=== PATIENT | male | born 1930 | race Hispanic/Latino ===

== ENCOUNTER 2017-04-26 07:50 | Emergency (ER) | payer MEDICARE, OTHER ==
--- NOTE | 2017-04-26 12:05 | Emergency Department Report ---
ED Fall HPI - General Chief Complaint: Fall Stated Complaint: FALL Time Seen by Provider: 04/26/17 11:26 Source: patient Mode of arrival: Ambulatory - History of Present Illness Initial Comments: 86-year-old male past medical history CAD, CVA, hypertension, stents, SC 2013 presents with complaint of facial pain, nasal pain, left elbow pain status post mechanical fall at home. Patient states that this morning he was walking downstairs and tripped on the last stair staircase about one to 2 steps fell forward and hit his left elbow and front face on the side of wall. Patient denies any loss of consciousness. Denies any nausea or vomiting., Visible abrasion to forehead and bridge of nose. Patient states that he feels significant pain when trying to flex or extend his left elbow. Patient is accompanied by his daughter. Denies any loss of consciousness is fully lucid awake alert and oriented and ambulatory without assistance. Patient states he bled from his nose briefly. States last tetanus update was in 2012 -: This morning Fall From: down stairs (#) (1-2) When Fall Occurred: 4-6 hours [employer] Fall Witnessed: no Place Fall Occurred: home Loss of Consciousness: none Prolonged Down Time?: no Symptoms Prior to Fall: none Location: head, other (left arm) Location - Extremities: Left: Elbow (left elbow pain and swelling) Severity: moderate Severity scale (0 -10): 6 Quality: aching Context: tripped/slipped Associated Symptoms: denies - Related Data Home Medications Medication Instructions Recorded Confirmed Last Taken Albuterol Sulfate [Ventolin HFA] 2 puff PO BID PRN 06/22/13 06/22/13 07/15/13 21 :00 Amiodarone HCl 200 mg PO DAILY 06/22/13 06/22/13 07/15/13 21:00 Aspirin [Aspirin EC] 1 tab PO DAILY 06/22/13 06/22/13 07/15/13 21:00 Clopidogrel Bisulfate [Clopidogrel] 75 mg PO DAILY 06/22/13 06/22/13 07/15/13 21 :00 Lisinopril 2.5 mg PO DAILY 06/22/13 06/22/13 07/15/13 21:00 Cefuroxime [Ceftin] 250 mg PO Q12H 07/03/13 07/03/13 07/15/13 21:00 Venlafaxine [Effexor 37.5mg tab] 37.5 mg PO QDAY 07/03/13 07/03/13 07/15/13 21: 00 Atorvastatin (Nf) [Lipitor] 10 mg PO QHS 07/08/13 07/08/13 07/15/13 21:00 Nitroglycerin [Nitrostat] 0.4 mg SL PRN PRN 07/08/13 07/08/13 07/08/13 Pantoprazole [Protonix TAB] 40 mg PO BID 07/08/13 07/08/13 07/15/13 21:00 Amiodarone [Cordarone] 200 mg PO DAILY 07/16/13 07/16/13 07/15/13 21:00 Atorvastatin (Nf) [Lipitor] 20 mg PO QHS 07/16/13 07/16/13 07/15/13 21:00 Previous Rx's Medication Instructions Recorded Last Taken Type HYDROcodone/APAP 5-325 [[place] 1 each PO Q6HR PRN #20 tablet 04/26/17 Unknown Rx 5/325] Allergies Allergy/AdvReac Type Severity Reaction Status Date / Time No Known Allergies Allergy Unverified 06/22/13 14:50 ED Review of Systems ROS: Stated complaint: FALL Other details as noted in HPI Constitutional: denies: chills, fever Eyes: denies: eye pain, eye discharge, vision change ENT: denies: ear pain, throat pain Respiratory: denies: cough, shortness of breath, wheezing Cardiovascular: denies: chest pain, palpitations Endocrine: no symptoms reported Gastrointestinal: denies: abdominal pain, nausea, diarrhea Genitourinary: denies: urgency, dysuria Musculoskeletal: denies: back pain, joint swelling, arthralgia Skin: denies: rash, lesions Neurological: denies: headache, weakness, paresthesias Psychiatric: denies: anxiety, depression Hematological/Lymphatic: denies: easy bleeding, easy bruising ED Past Medical Hx - Past Medical History Previous Medical History?: Yes Hx Hypertension: No Hx CVA: Yes Hx Heart Attack/AMI: Yes Hx Renal Disease: Yes Additional medical history: bladder stopage - Surgical History Past Surgical History?: Yes Hx Coronary Stent: Yes (ANGIOPLASTY 02/2013) Additional Surgical History: Kidney stone removed - Social History Smoking Status: Never Smoker Substance Use Type: Prescribed - Medications Home Medications: Home Medications Medication Instructions Recorded Confirmed Last Taken Type Albuterol Sulfate [Ventolin HFA] 2 puff PO BID PRN 06/22/13 06/22/13 07/15/13 21 :00 History Amiodarone HCl 200 mg PO DAILY 06/22/13 06/22/13 07/15/13 21:00 History Aspirin [Aspirin EC] 1 tab PO DAILY 06/22/13 06/22/13 07/15/13 21:00 History Clopidogrel Bisulfate [Clopidogrel] 75 mg PO DAILY 06/22/13 06/22/13 07/15/13 21 :00 History Lisinopril 2.5 mg PO DAILY 06/22/13 06/22/13 07/15/13 21:00 History Cefuroxime [Ceftin] 250 mg PO Q12H 07/03/13 07/03/13 07/15/13 21:00 History Venlafaxine [Effexor 37.5mg tab] 37.5 mg PO QDAY 07/03/13 07/03/13 07/15/13 21: 00 History Atorvastatin (Nf) [Lipitor] 10 mg PO QHS 07/08/13 07/08/13 07/15/13 21:00 History Nitroglycerin [Nitrostat] 0.4 mg SL PRN PRN 07/08/13 07/08/13 07/08/13 History Pantoprazole [Protonix TAB] 40 mg PO BID 07/08/13 07/08/13 07/15/13 21:00 History Amiodarone [Cordarone] 200 mg PO DAILY 07/16/13 07/16/13 07/15/13 21:00 History Atorvastatin (Nf) [Lipitor] 20 mg PO QHS 07/16/13 07/16/13 07/15/13 21:00 History HYDROcodone/APAP 5-325 [[place] 1 each PO Q6HR PRN #20 tablet 04/26/17 Unknown Rx 5/325] ED Physical Exam - General Limitations: No Limitations General appearance: alert, in no apparent distress - Head Head exam: Present: other (swelling to bridge of nose and abrasions on forehead and bridge of nose) - Eye Eye exam: Present: normal appearance, PERRL, EOMI - ENT ENT exam: Present: mucous membranes moist - Expanded ENT Exam Expanded Throat exam: Positive: normal inspection - Neck Neck exam: Present: normal inspection, full ROM - Respiratory Respiratory exam: Present: normal lung sounds bilaterally. Absent: respiratory distress - Cardiovascular Cardiovascular Exam: Present: regular rate, normal rhythm. Absent: systolic murmur, diastolic murmur, rubs, gallop - GI/Abdominal GI/Abdominal exam: Present: soft, normal bowel sounds - Rectal Rectal exam: Present: deferred - Extremities Exam Extremities exam: Present: normal inspection, tenderness (tenderness left elbow) - Expanded Upper Extremity Exam Left Shoulder Exam: Present: normal inspection, full ROM Upper Arm exam: Present: normal inspection, full ROM Elbow exam: Present: tenderness (tenderness and swelling at lateral left elbow flexion and extension difficult for patient), swelling (swelling lateral elbow) , abrasion (abrasion left elbow), pain w/ pronation/supination Forearm Wrist exam: Present: tenderness, swelling (swelling at left elbow) Hand Wrist exam: Present: normal inspection, full ROM Neuro motor exam: Present: wrist extension intact, thumb opposition intact, thumb IP flexion intact, thumb adduction intact, fingers 2-5 abduction intact Vascular: Present: normal capillary refill (slow capillary refill less than one second all fingers), radial pulse, brachial pulse (distal radial and brachial pulses intact to palpation) - Back Exam Back exam: Present: normal inspection - Neurological Exam Neurological exam: Present: alert, oriented X3, CN II-XII intact - Psychiatric Psychiatric exam: Present: normal affect, normal mood - Skin Skin exam: Present: warm, dry, intact, normal color. Absent: rash ED Course Vital Signs 04/26/17 04/26/17 04/26/17 08:12 13:49 15:51 Temperature 97.5 F L 97.9 F Pulse Rate 62 70 Respiratory 18 20 20 Rate Blood Pressure 122/74 Blood Pressure 110/72 [Right] O2 Sat by Pulse 98 98 Oximetry 04/26/17 16:29 Temperature Pulse Rate Respiratory 20 Rate Blood Pressure Blood Pressure [Right] O2 Sat by Pulse Oximetry ED Medical Decision Making - Lab Data Result diagrams: 04/26/17 15:52 04/26/17 15:52 - Medical Decision Making A/P: Left distal humerus fracture, nasal bone fracture, mechanical fall, cervical spine fracture 1-is custom with Dr. Reed, patient to be transferred to trauma Center for neurosurgical/trauma eval given history of cervical fracture. As per patient and the family he sustained a cervical fracture status post fall in 2013 and was aware that he had a broken cervical vertebra. As per CT report this appears old however and context of new fall patient should be evaluated by neurosurgery/trauma surgery. No clinical signs of paralysis patient is awake alert and oriented 3, no new findings and brain on noncontrast head CT 2-left elbow placed in posterior splint with immobilization and sling. Distal sensation and blood flow intact in left upper extremity, radial and brachial pulses intact, distal sensation all fingers intact, capillary refill less than one second in all fingers. Patient to follow-up with orthopedics 3-[place] when necessary 4- triple antibiotic ointment to abrasions, patient's tetanus was last updated in 2013 Critical care attestation.: If time is entered above; I have spent that time in minutes in the direct care of this critically ill patient, excluding procedure time. ED Disposition Clinical Impression: Abrasion Humerus distal fracture Qualifiers: Encounter type: initial encounter Fracture type: closed Fracture morphology: other fracture Fracture alignment: nondisplaced Laterality: left Qualified Code( s): S42.495A - Other nondisplaced fracture of lower end of left humerus, initial encounter for closed fracture Nasal bone fracture Qualifiers: Encounter type: initial encounter Fracture type: closed Qualified Code(s): S02.2XXA - Fracture of nasal bones, initial encounter for closed fracture Disposition: DC/TX-70 ANOTHER TYPE HLTHCARE Is pt being admited?: No Does the pt Need Aspirin: No Condition: Stable Instructions: Arm Fracture in Adults (ED), RICE Therapy (ED) Prescriptions: HYDROcodone/APAP 5-325 [[place] 5/325] 1 each PO Q6HR PRN #20 tablet PRN Reason: Pain Referrals: JED BERRIOS [Primary Care Provider] - 3-5 Days JUSTO WORTHY MD [Staff Physician] - 3-5 Days [facility] [Provider Group] - 3-5 Days Forms: Accompanied Note Time of Disposition: 13:29
[2017-04-26] MEDS ORDERED: NORCO 5/325 PO ONE ×2 (12:09→15:44)
--- NOTE | 2017-04-26 13:02 | XRay Report ---
Left elbow: Trauma, pain. There is an impacted fracture through the distal humerus overlapping the condyles. The radius and ulnar appear to be intact and aligned to the respective condyles. There is cartilaginous calcification in the medial joint space. No lytic lesions noted. Impression: Impacted humerus fracture. Left forearm: Trauma, pain. The radius and ulnar appear intact and normally articulating with the humerus. No soft tissue findings. The bones may be slightly demineralized. Impression: No forearm pathology. Left shoulder: Trauma, pain. The shoulder is well aligned. No fracture deformity. The joint spaces are preserved. The subacromial space is preserved. Impression: No acute finding.
--- NOTE | 2017-04-26 13:45 | Cat Scan Report ---
CT HEAD WITHOUT CONTRAST INDICATION: Status post fall, hit head. On aspirin. COMPARISON: 04/07/2013. FINDINGS: Noncontrast head CT now demonstrates approximately 4 cm right frontal lobe encephalomalacia laterally. Approximately 3 mm right frontal periventricular lacunar infarct. Minimal, benign right basal ganglia calcifications. Otherwise symmetric, age-appropriate sulci and mildly enlarged ventricles. No definite acute infarct, hemorrhage, mass effect or midline shift. No abnormal extra axial fluid collections. Normal posterior fossa with preserved basilar cisterns. Bilateral cataract surgery. Leftward nasal septal bowing. Clear imaged paranasal sinuses and mastoid air cells. Mild atherosclerotic ICA and vertebral artery calcifications. Intact calvarium and scalp. Numerous radiopaque dental material. Interval nasogastric tube removal. CONCLUSION: No acute intracranial CT abnormality with expected interval evolution of right frontal lobe/MCA territory infarct and few other findings, as above. Please correlate. Thank you for the opportunity to participate in this patient's care.
--- NOTE | 2017-04-26 14:18 | Cat Scan Report ---
CT CERVICAL SPINE WITHOUT CONTRAST INDICATION: Status post fall. Headache. COMPARISON: None similar. FINDINGS: Noncontrast axial, sagittal and coronal CT reconstructions through the cervical spine demonstrate a type 2 or 3 odontoid fracture with craniocaudal separation of approximately 5 mm as on sagittal image 34. Adjacent fractured edges though appear slightly sclerotic, not entirely excluded old/nonunion. Relationship of the fractured dens to anterior arch of C1 and predental space though preserved. Normal posterior arch of C1, prevertebral soft tissues and the posterior elements. Normal imaged intracranial appearance. Streak artifact from radiopaque dental material partly limits exam. Assessment of the spinal canal itself compromised from C6-C7 inferiorly due to artifact from shoulder soft tissues. Normal thyroid. Clear lung apices. Atherosclerotic carotid calcifications. On the obtained axial images: C2-C3 demonstrates mild disc bulge/osteophyte complex. Few disc calcifications. Left more than right uncovertebral spurring. C3-C4 demonstrates disc narrowing with disc ossification/obliteration posteriorly. Moderate right and mild left facet hypertrophy. C4-C5 suggests moderate bilateral facet arthropathy. Mild bilateral uncovertebral spurring and neural foraminal narrowing. C5-C6 demonstrates moderate disc narrowing, degenerative spurring and moderate right and mild left facet arthropathy. Few endplate irregularities/Schmorl's nodes also seen. C6-C7 demonstrates adjacent end plate irregularities/Schmorl's nodes, mild degenerative spurring and disc narrowing. C7-T1 also demonstrate similar changes as the level above. Approximately 2 cm T1 left transverse process hemangioma possible, axial image 220, series 2. Left AICD with dual-chamber pacemaker leads also partially imaged. CONCLUSION: 1. Type II or type III odontoid process, though exact age indeterminate and not entirely excluded old/presenting nonunion. No significant prevertebral soft tissue swelling also seen at this time. Please also correlate clinically. 2. Various other findings, including multilevel cervical spondylosis. I phoned the above results to Dr. Walsh in the ER, 1:50 PM, 04/26/2017. Thank you for the opportunity to participate in this patient's care.
--- NOTE | 2017-04-26 14:18 | Cat Scan Report ---
CT FACIAL BONES WITHOUT CONTRAST: INDICATION: Status post fall. Evaluate for facial fractures. COMPARISON: None similar. FINDINGS: Noncontrast axial, sagittal and coronal CT reconstructions through the face demonstrate nasal soft tissue injury with mild swelling and few small foci of air with subjacent nasal bone fractures, displaced approximately 2 mm on the right and possibly comminuted on the left as on axial image 88, series 2. Mild bilateral ethmoid sinusitis. Clear remainder imaged paranasal sinuses and mastoid air cells. Leftward nasal septal deviation. Patent ostiomeatal complexes bilaterally. Intact orbits. Bilateral cataract surgery. Normal retrobulbar fat. No acute imaged intracranial abnormality. Symmetric TMJs with few degenerative changes. Radiopaque dental material creates streak artifact, limiting exam. Carotid atherosclerotic calcifications. Type II or type III odontoid fracture with separation noted. CONCLUSION: 1. Acute nasal bone fracture/injury noted without additional facial fractures. 2. Various other findings, including odontoid fracture, described in detail on accompanying cervical spine CT. Thank you for the opportunity to participate in this patient's care.
[2017-04-26] MEDS ORDERED: LACTATED RINGERS 1,000 ML IV SCH (15:00)
--- NOTE | 2017-04-26 15:40 | XRay Report ---
Portable chest: Chest pain. There is a bipolar pacemaker with intact wires. The lungs are clear. There is no vascular congestion. The aorta is tortuous. The heart is probably normal for positioning. Compared to prior exam in June 2013 the pacemaker is new but the findings otherwise appear generally the same. Impression: No acute findings.
[2017-04-26 15:52] VITALS: BP 110/72
[2017-04-26 16:13] LABS: Basophils % (Auto) 0.2 % (0.0-1.8); Eosinophils % (Auto) 0.1 % (0.0-4.3); Hematocrit 39.1 % (35.5-45.6); Hemoglobin 13.1 gm/dl (11.8-15.2); Mean Corpuscular HGB Conc 34 % (32-34); Mean Corpuscular Hemoglobin 30 pg (28-32); Mean Corpuscular Volume 90 fl (84-94); Platelet Count 190 K/mm3 (140-440); Red Blood Count 4.34 M/mm3 (3.65-5.03); Red Cell Distribution Width 13.4 % (13.2-15.2); White Blood Count 10.8 K/mm3 (4.5-11.0)
[2017-04-26 16:57] LABS: Anion Gap 18 mmol/L; BUN/Creatinine Ratio 21.42; Blood Urea Nitrogen 15 mg/dL (9-20); Calcium 9.1 mg/dL (8.4-10.2); Carbon Dioxide 25 mmol/L (22-30); Chloride 98.9 mmol/L (98-107); Glucose 107 mg/dL (75-100); Potassium 4.3 mmol/L (3.6-5.0); Sodium 138 mmol/L (137-145)
== END 2017-04-26 18:35 | disposition other institution (70) ==
LOC: ED 07:50
DX: S42.495A Other nondisplaced fracture of lower end of left humerus, initial encounter for closed fracture (principal); S02.2XXA Fracture of nasal bones, initial encounter for closed fracture; S00.81XA Abrasion of other part of head, initial encounter; Z86.73 Personal history of transient ischemic attack (TIA), and cerebral infarction without residual deficits; I25.2 Old myocardial infarction; W10.8XXA Fall (on) (from) other stairs and steps, initial encounter; Y93.89 Activity, other specified; Y99.8 Other external cause status; Y92.89 Other specified places as the place of occurrence of the external cause
CPT/HCPCS: 29105; 36415; 70450; 70486; 71010; 72125; 73030; 73080; 73090; 80048; 85025; 86850; 86900; 86901; 96360; 99285; J7120

== ENCOUNTER 2018-12-26 22:57 | Emergency (ER) | payer MEDICARE, OTHER ==
[2018-12-27] MEDS ORDERED: ROCEPHIN/NS 2 GM/100 ML 2 GM/100 ML BAG IV SCH (00:07)
[2018-12-27] MEDS ORDERED: ZITHROMAX 500 MG in NACL 0.9% 250ML 250 ML IV SCH (00:07)
[2018-12-27] MEDS ORDERED: NACL 0.9% 1000 ML IV ONE (00:07)
[2018-12-27 00:42] LABS: Hematocrit 37.8 % (35.5-45.6); Hemoglobin 12.8 gm/dl (11.8-15.2); Mean Corpuscular HGB Conc 34 % (32-34); Mean Corpuscular Volume 90 fl (84-94); Platelet Count 159 K/mm3 (140-440); Red Cell Distribution Width 13.2 % (13.2-15.2)
--- NOTE | 2018-12-27 00:53 | XRay Report ---
PROCEDURE: XR CHEST 1V AP TECHNIQUE: Chest radiograph single view. HISTORY: cough COMPARISONS: None . FINDINGS: Heart: The heart is mildly enlarged. Mediastinum/Vessels: Normal. Lungs/Pleural space: There is suboptimal inspiration. There are no infiltrates, effusions or pneumot horaces.. Bony thorax: No acute osseous abnormality. There are degenerative changes of the glenohumeral joints. Life support devices: Pacemaker leads are in proper position.. IMPRESSION: The heart is mildly enlarged. There is suboptimal inspiration. There are no infiltrates, effusions or pneumothoraces.. Pacemaker leads are in proper position... This document is electronically signed by Kenji Alvarado MD., December 27 2018 12:51:48 AM ET
[2018-12-27 01:03] LABS: Alanine Aminotransferase 56 units/L (7-56); Albumin 3.5 g/dL (3.9-5); BUN/Creatinine Ratio 28; Blood Urea Nitrogen 31 mg/dL (9-20); Calcium 8.7 mg/dL (8.4-10.2); Hemolysis Index 5
[2018-12-27 02:05] LABS: Basophils % (Manual) 0 % (0.0-1.8); Eosinophils % (Manual) 0 % (0.0-4.3); Myelocytes # (Manual) 0.1 K/mm3; Total Cells Counted 100
[2018-12-27 02:06] LABS: Platelet Estimate Consistent w Auto
[2018-12-27 02:11] VITALS: BP 93/59
--- NOTE | 2018-12-27 03:05 | Emergency Department Report ---
- General Chief complaint: Dyspnea/Respdistress Stated complaint: PER COME IN FOR COUGH/CHEST FAY Time Seen by Provider: 12/26/18 23:59 Source: patient Mode of arrival: Ambulatory Limitations: No Limitations - History of Present Illness Initial comments: Mr. Hernandez is an 88 yo male with hx of CAD, HTN, depression, dyslipidemia, GERD, cardiomyopathy s/p pacemaker who presents with lethargy, falls, cough. Seen by Dr. Simons PCP today. Started on antibiotics. PCP called patient and daughter contreras. Recommended evaluation in ED for possible pneumonia. He feels much better. Appetite has improved. Last month, from comlications of Alzheimer's disease. MD Complaint: generalized weakness -: Gradual, days(s) (several) Location: generalized Severity: mild Consistency: other (improving) Associated Symptoms: fever/chills, loss of appetite, myalgias, shortness of breath - Related Data Home Medications Medication Instructions Recorded Confirmed Last Taken Albuterol Sulfate [Ventolin HFA] 2 puff PO BID PRN 06/22/13 06/22/13 07/15/13 21:00 Amiodarone HCl 200 mg PO DAILY 06/22/13 06/22/13 07/15/13 21:00 Aspirin [Aspirin EC] 1 tab PO DAILY 06/22/13 06/22/13 07/15/13 21:00 Clopidogrel Bisulfate [Clopidogrel] 75 mg PO DAILY 06/22/13 06/22/13 07/15/13 21:00 Lisinopril 2.5 mg PO DAILY 06/22/13 06/22/13 07/15/13 21:00 Venlafaxine [Effexor 37.5mg tab] 37.5 mg PO QDAY 07/03/13 07/03/13 07/15/13 21:00 cefUROXime [Ceftin] 250 mg PO Q12H 07/03/13 07/03/13 07/15/13 21:00 Atorvastatin (Nf) [Lipitor] 10 mg PO QHS 07/08/13 07/08/13 07/15/13 21:00 Nitroglycerin [Nitrostat] 0.4 mg SL PRN PRN 07/08/13 07/08/13 07/08/13 Pantoprazole [Protonix TAB] 40 mg PO BID 07/08/13 07/08/13 07/15/13 21:00 Amiodarone [Cordarone] 200 mg PO DAILY 07/16/13 07/16/13 07/15/13 21:00 Atorvastatin (Nf) [Lipitor] 20 mg PO QHS 07/16/13 07/16/13 07/15/13 21:00 Previous Rx's Medication Instructions Recorded Last Taken Type HYDROcodone/APAP 5-325 [[place] 1 each PO Q6HR PRN #20 tablet 04/26/17 Unknown Rx 5/325] Allergies Allergy/AdvReac Type Severity Reaction Status Date / Time No Known Allergies Allergy Verified 12/26/18 23:00 ED Review of Systems ROS: Stated complaint: PER COME IN FOR COUGH/CHEST FAY Other details as noted in HPI Comment: All other systems reviewed and negative Constitutional: fever, malaise Respiratory: cough ED Past Medical Hx - Past Medical History Previous Medical History?: Yes Hx Hypertension: No Hx CVA: Yes Hx Heart Attack/AMI: Yes Hx Renal Disease: Yes Additional medical history: SBO - Surgical History Past Surgical History?: Yes Hx Coronary Stent: Yes (ANGIOPLASTY 02/2013) Additional Surgical History: Kidney stone removed - Social History Smoking Status: Never Smoker Substance Use Type: None - Medications Home Medications: Home Medications Medication Instructions Recorded Confirmed Last Taken Type Albuterol Sulfate [Ventolin HFA] 2 puff PO BID PRN 06/22/13 06/22/13 07/15/13 21:00 History Amiodarone HCl 200 mg PO DAILY 06/22/13 06/22/13 07/15/13 21:00 History Aspirin [Aspirin EC] 1 tab PO DAILY 06/22/13 06/22/13 07/15/13 21:00 History Clopidogrel Bisulfate [Clopidogrel] 75 mg PO DAILY 06/22/13 06/22/13 07/15/13 21:00 History Lisinopril 2.5 mg PO DAILY 06/22/13 06/22/13 07/15/13 21:00 History Venlafaxine [Effexor 37.5mg tab] 37.5 mg PO QDAY 07/03/13 07/03/13 07/15/13 21:00 History cefUROXime [Ceftin] 250 mg PO Q12H 07/03/13 07/03/13 07/15/13 21:00 History Atorvastatin (Nf) [Lipitor] 10 mg PO QHS 07/08/13 07/08/13 07/15/13 21:00 History Nitroglycerin [Nitrostat] 0.4 mg SL PRN PRN 07/08/13 07/08/13 07/08/13 History Pantoprazole [Protonix TAB] 40 mg PO BID 07/08/13 07/08/13 07/15/13 21:00 History Amiodarone [Cordarone] 200 mg PO DAILY 07/16/13 07/16/13 07/15/13 21:00 History Atorvastatin (Nf) [Lipitor] 20 mg PO QHS 07/16/13 07/16/13 07/15/13 21:00 History HYDROcodone/APAP 5-325 [[place] 1 each PO Q6HR PRN #20 tablet 04/26/17 Unknown Rx 5/325] ED Physical Exam - General Limitations: No Limitations General appearance: alert, in no apparent distress, other (elderly frail) - Head Head exam: Present: atraumatic, normocephalic - Eye Eye exam: Present: normal appearance - ENT ENT exam: Present: mucous membranes moist - Neck Neck exam: Present: normal inspection, full ROM - Respiratory Respiratory exam: Present: normal lung sounds bilaterally. Absent: respiratory distress, wheezes, rales, rhonchi - Cardiovascular Cardiovascular Exam: Present: regular rate, normal rhythm, normal heart sounds. Absent: systolic murmur, diastolic murmur, rubs, gallop - GI/Abdominal GI/Abdominal exam: Present: soft, normal bowel sounds. Absent: distended, tenderness, guarding, rebound - Rectal Rectal exam: Present: deferred - Extremities Exam Extremities exam: Present: normal inspection - Back Exam Back exam: Present: normal inspection - Neurological Exam Neurological exam: Present: alert, oriented X3 - Psychiatric Psychiatric exam: Present: normal mood, flat affect - Skin Skin exam: Present: warm, dry, intact, normal color. Absent: rash ED Course Vital Signs 12/26/18 12/27/18 12/27/18 23:04 00:16 01:00 Temperature 98.5 F 98.5 F Pulse Rate 65 67 64 Respiratory 18 12 19 Rate Blood Pressure 88/54 93/53 Blood Pressure 93/53 [Left] O2 Sat by Pulse 94 96 95 Oximetry 12/27/18 02:00 Temperature Pulse Rate 60 Respiratory 22 Rate Blood Pressure 93/59 Blood Pressure [Left] O2 Sat by Pulse 96 Oximetry ED Medical Decision Making - Lab Data Result diagrams: 12/27/18 00:17 12/27/18 00:17 - Radiology Data Radiology results: report reviewed no acute process - Medical Decision Making Mr. Hernandez presents with lethargy, falls, cough. Normal WBC, no infiltrate on CXR. Daughter stated that he has hx of hypotension at baseline. No other signs of bacteremia/sepsis. Elevated BUN, due to dehydration or renal insufficiency Given IVF Instructed to continue antibiotics prescribed by PCP dc'd home Critical care attestation.: If time is entered above; I have spent that time in minutes in the direct care of this critically ill patient, excluding procedure time. ED Disposition Clinical Impression: Dehydration, Cough Disposition: DC- TO HOME OR SELFCARE Is pt being admited?: No Does the pt Need Aspirin: No Condition: Stable Instructions: Dehydration (ED) Referrals: Santana ALFARO MD [Staff Physician] - 3-5 Days
== END 2018-12-27 03:35 | disposition home or self-care (01) ==
LOC: ED 22:57
DX: E86.0 Dehydration (principal); R05 Cough; I10 Essential (primary) hypertension; E78.5 Hyperlipidemia, unspecified; K21.9 Gastro-esophageal reflux disease without esophagitis; I42.9 Cardiomyopathy, unspecified; Z79.82 Long term (current) use of aspirin; Z95.0 Presence of cardiac pacemaker
CPT/HCPCS: 36415; 71045; 80053; 82140; 85007; 85025; 87040; 96365; 96367; 99284; J0456; J0696; J7030; J7050

== ENCOUNTER 2020-04-10 10:52 | Outpatient (CLI) | payer MEDICARE, OTHER ==
--- NOTE | 2020-04-10 12:00 | XRay Report ---
RIGHT HIP 3 VIEWS INDICATION / CLINICAL INFORMATION: Z72.001AFracture of unspecified part of neck of right femur, init. COMPARISON: 02/16/2020 FINDINGS: Right hip prosthesis in position. Bones appear osteopenic. No fracture. Considerable vascular calcification. Signer Name: Cheikh Ferris MD Signed: 04/10/2020 11:55 AM Workstation Name: [id number]
== END 2020-04-10 10:53 | disposition home or self-care (01) ==
LOC: XRAY 10:52
PROVIDERS: ATTEND Orthopaedic Surgery
DX: S72.001A Fracture of unspecified part of neck of right femur, initial encounter for closed fracture (principal); X58.XXXA Exposure to other specified factors, initial encounter; Y93.89 Activity, other specified; Y92.89 Other specified places as the place of occurrence of the external cause; Y99.8 Other external cause status

== ENCOUNTER 2020-05-25 10:16 | Emergency (ER) | payer MEDICARE, OTHER ==
[2020-05-25 11:28] LABS: Basophils # (Auto) 0.1 K/mm3 (0.0-0.1); Basophils % (Auto) 1.2 % (0.0-1.8); Eosinophils # (Auto) 0.2 K/mm3 (0.0-0.4); Eosinophils % (Auto) 2.1 % (0.0-4.3); Hematocrit 36.9 % (35.5-45.6); Hemoglobin 12.6 gm/dl (11.8-15.2); Lymphocytes # (Auto) 1.5 K/mm3 (1.2-5.4); Lymphocytes % (Auto) 17.1 % (13.4-35.0); Mean Corpuscular HGB Conc 34 % (32-34); Mean Corpuscular Volume 87 fl (84-94); Monocytes # (Auto) 1.1 K/mm3 (0.0-0.8); Monocytes % (Auto) 12.3 % (0.0-7.3); Platelet Count 207 K/mm3 (140-440); Red Blood Count 4.23 M/mm3 (3.65-5.03); Red Cell Distribution Width 14.3 % (13.2-15.2)
[2020-05-25 11:45] LABS: Alanine Aminotransferase 12 units/L (7-56); Albumin 3.8 g/dL (3.9-5); Blood Urea Nitrogen 23 mg/dL (9-20); Calcium 9.2 mg/dL (8.4-10.2); Hemolysis Index 38
[2020-05-25 11:48] LABS: BUN/Creatinine Ratio 33
--- NOTE | 2020-05-25 15:11 | XRay Report ---
CHEST 1 VIEW 05/25/2020 2:25 PM INDICATION / CLINICAL INFORMATION: sob. COMPARISON: Chest x-ray 12/27/2018 FINDINGS: SUPPORT DEVICES: Left subclavian pacemaker/ICD leads again noted HEART / MEDIASTINUM: Moderate cardiomegaly again noted LUNGS / PLEURA: No significant pulmonary or pleural abnormality. No pneumothorax. ADDITIONAL FINDINGS: No significant additional findings. IMPRESSION: 1. Stable cardiomegaly without CHF Signer Name: Harvey Jarvis MD Signed: 05/25/2020 3:07 PM Workstation Name: [id number]
--- NOTE | 2020-05-25 15:57 | Emergency Department Report ---
HPI - General Chief Complaint: Dyspnea/Respdistress Time Seen by Provider: 05/25/20 15:28 - HPI HPI: This is an 89-year-old male who presents to the emergency department from home with complaint of some difficulty with urination and low back pain with rad iation down the left leg. The patient urinated without difficulty last night but says that he had difficulty urinating this morning until he had had 3 cups of coffee and that he urinated around 9 AM. It is now about 4 PM and the patient has not urinated since. He denies any abdominal pain, numbness, paresthesias, weakness. Apparently through triage the patient had complained of some shortness of breath but did not complain of this until I brought it to his attention. He then says that he has had some intermittent shortness of breath. He denies any chest pain, cough, wheezing, fever. He has a past medical history of CVA, coronary artery disease with previous NH and has a pacemaker in place. He currently rates his low back pain at a 6 out of 10 in intensity. He has not taken anything for his symptoms prior to presentation. ED Past Medical Hx - Past Medical History Hx Hypertension: No Hx CVA: Yes Hx Heart Attack/AMI: Yes (2012) Hx Congestive Heart Failure: No Hx Diabetes: No Hx Liver Disease: No Hx Renal Disease: No Hx Sickle Cell Disease: No Hx Seizures: No Hx Asthma: No Hx COPD: No Additional medical history: SBO - Surgical History Hx Coronary Stent: Yes (ANGIOPLASTY 02/2013) Hx Pacemaker: Yes ([employer]) Hx Internal Defibrillator: No Additional Surgical History: Kidney stone removed - Social History Smoking Status: Never Smoker - Medications Home Medications: Home Medications Medication Instructions Recorded Confirmed Last Taken Type Aspirin [Aspirin EC] 1 tab PO DAILY 06/22/13 02/14/20 07/15/13 21:00 History lisinopriL [Lisinopril] 2.5 mg PO Q48HR 06/22/13 02/14/20 07/15/13 21:00 History Atorvastatin (Nf) [Lipitor] 10 mg PO QHS 07/08/13 02/14/20 07/15/13 21:00 History Nitroglycerin [Nitrostat] 0.4 mg SL PRN PRN 07/08/13 02/14/20 07/08/13 History Pantoprazole [Protonix TAB] 40 mg PO DAILY 07/08/13 02/14/20 07/15/13 21:00 History Fish Oil 300 mg PO DAILY 02/14/20 02/14/20 Unknown History ISOSORBIDE MONOnitrate [Imdur ER] 60 mg PO QDAY 02/14/20 02/14/20 Unknown History Multivitamin/Iron/Folic Acid 1 each PO DAILY 02/14/20 02/14/20 Unknown History [Centrum Adults Tablet] Tylenol 1,000 mg PO QID 02/14/20 02/14/20 Unknown History Vitamin B12 1,000 mg PO DAILY 02/14/20 02/14/20 Unknown History atenoloL [Tenormin] 25 mg PO DAILY 02/14/20 02/14/20 Unknown History levETIRAcetam [Keppra TAB] 250 mg PO DAILY 02/14/20 02/14/20 Unknown History Acetaminophen [Acetaminophen TAB] 650 mg PO Q4H PRN tablet 02/22/20 Unknown Rx Cyanocobalamin [Vitamin B-12] 1,000 mcg PO QDAY tablet 02/22/20 Unknown Rx Enoxaparin 40 mg SUB-Q QDAY syringe 02/22/20 Unknown Rx Pantoprazole [Protonix TAB] 40 mg PO DAILY tablet 02/22/20 Unknown Rx levETIRAcetam [Keppra] 250 mg PO BID oral.liqd 02/22/20 Unknown Rx lisinopriL [Zestril TAB] 2.5 mg PO Q48HR@2200 tablet 02/22/20 Unknown Rx Ibuprofen [Motrin 600 MG tab] 600 mg PO Q8H PRN #15 tablet 05/25/20 Unknown Rx Sulfamethoxazole/Trimethoprim 1 each PO BID #14 tablet 05/25/20 Unknown Rx [Bactrim DS TAB] ED Review of Systems ROS: Stated complaint: URINE ISSUE,BACK & LEG PAIN,WEAKNESS,KELLIE Other details as noted in HPI Comment: All other systems reviewed and negative Constitutional: denies: chills, fever Eyes: denies: eye pain, vision change ENT: denies: ear pain, throat pain Respiratory: denies: cough, shortness of breath Cardiovascular: denies: chest pain, palpitations Gastrointestinal: denies: abdominal pain, vomiting Genitourinary: other (difficulty urinating). denies: discharge Musculoskeletal: back pain. denies: arthralgia Skin: denies: rash, lesions Neurological: denies: headache, weakness, numbness, paresthesias Physical Exam - Physical Exam Vital Signs: Vital Signs 05/25/20 10:23 Temperature 97.8 F Pulse Rate 79 Respiratory 18 Rate Blood Pressure 115/69 O2 Sat by Pulse 97 Oximetry Physical Exam: GENERAL: The patient is well-developed well-nourished. HENT: Normocephalic. Atraumatic. Patient has moist mucous membranes. EYES: Extraocular motions are intact. NECK: Supple. Trachea is midline. CHEST/LUNGS: Clear to auscultation. There is no respiratory distress noted. HEART/CARDIOVASCULAR: Regular. There is no tachycardia. ABDOMEN: Abdomen is soft, nontender. Patient has normal bowel sounds. There is no abdominal distention. SKIN: Skin is warm and dry. NEURO: The patient is awake, alert, and oriented. The patient is cooperative. The patient has no focal neurologic deficits. Normal speech. Cranial nerves II through XII grossly intact. Patellar and Achilles deep tendon reflexes +2/4 bilaterally. The patient has two-point discrimination and sharp versus dull perception along the bilateral lower extremities. Strength 5 out of 5 for bilateral lower extremities including dorsi plantarflexion of the great toes and feet. Normal Babinski reflex. Strong rectal tone. Positive left-sided straight leg raise test. MUSCULOSKELETAL: There is no tenderness or deformity. There is no limitation range of motion. There is no evidence of acute injury. BACK: There is both midline and bilateral paraspinal lumbar tenderness to palpation but no deformity. ED Course Vital Signs 05/25/20 10:23 Temperature 97.8 F Pulse Rate 79 Respiratory 18 Rate Blood Pressure 115/69 O2 Sat by Pulse 97 Oximetry ED Medical Decision Making - Lab Data Result diagrams: 05/25/20 10:56 05/25/20 10:56 - Radiology Data Radiology results: report reviewed, image reviewed interpreted by me: Chest x-ray does not show any acute process. There are no pleural effusions, obvious pneumonia and there is no pneumothorax. No significant cardiomegaly. THORACIC SPINE 3 VIEWS INDICATION / CLINICAL INFORMATION: MAIN. COMPARISON: None available. FINDINGS: VERTEBRAE: No acute fracture. No significant malalignment. Generalized osteopenia. DISC SPACES / FACET JOINTS:Multilevel mild degenerative changes are noted. PARASPINAL SOFT TISSUES:No significant abnormality. ADDITIONAL FINDINGS: Partially visualized triple lead left chest wall cardiac device. LUMBAR SPINE 3 VIEWS INDICATION / CLINICAL INFORMATION: back pain. COMPARISON: None available. FINDINGS: VERTEBRAE: No acute fracture. No significant malalignment. DISC SPACES / FACET JOINTS:Multilevel degenerative changes are noted most prominent at L5-S1. 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 PARASPINAL SOFT TISSUES:Vascular calcific locations. Partially visualized total right hip arthroplasty. ADDITIONAL FINDINGS: None. - Medical Decision Making This patient had presented to the emergency department with complaints of low back pain with radiation down the left leg, and the patient also had the separate complaint of having some difficulty with urination. He did have some urination after drinking multiple cups of coffee but nothing since. An ultrasound shows that he does have some urinary retention. A Baca catheter was placed and the patient put out about 1 L of urine. Patient's labs were otherwise unremarkable including CBC, metabolic panel and urinalysis. X-rays of the thoracic and lumbar spine show some degenerative disease that is age-related . Patient was given a dose of Toradol with great improvement of the patient's back pain. Patient's vital signs have been reassuring throughout his ED course. I did a thorough neurological exam on this patient. There is no muscle weakness, numbness or paresthesias. Patient has good rectal tone. Patient has good two-point discrimination and discrimination between sharp and dull. He has normal lower extremity deep tendon reflexes. The patient was able to ambulate around the emergency department using a walker, as he does at home, and says that he feels strong and at his baseline abilities. This does not appear consistent with any cord compression syndrome. The patient was switched to a leg bag from the Baca catheter. He will follow- up with [facility]. Patient is also been given an outpatient referral for [facility] to follow-up regarding his back pain and suspected sciatica. He has been given a prescription for anti-inflammatories. The patient will return to the emergency department with any worsening of his symptoms or with any acute distress. Critical Care Time: No Critical care attestation.: If time is entered above; I have spent that time in minutes in the direct care of this critically ill patient, excluding procedure time. ED Disposition Clinical Impression: Urinary retention Back pain Qualifiers: Back pain location: low back pain Chronicity: unspecified Back pain laterality: bilateral Sciatica presence: with sciatica Sciatica laterality: sciatica of left side Qualified Code(s): M54.42 - Lumbago with sciatica, left side Sciatica Qualifiers: Laterality: left Qualified Code(s): M54.32 - Sciatica, left side Disposition: TO HOME OR SELFCARE Is pt being admited?: No Condition: Stable Additional Instructions: Please follow-up with a primary care physician in the next few days. Please follow-up with a urologist regarding your urinary retention. I have given you a referral for a local urologist, Dr. Edwards, part of [facility]. I have also given you a referral for a local neurosurgeon, Dr. Lio Gracia, to follow-up regarding your back pain and suspected sciatica. Return to the emergency department with any worsening of your symptoms or with any acute distress. I have given you a prescription for anti-inflammatories for your back pain. I have also given you a prescription for some antibiotics since you have a Baca catheter in place. Prescriptions: Sulfamethoxazole/Trimethoprim [Bactrim DS TAB] 1 each PO BID #14 tablet Ibuprofen [Motrin 600 MG tab] 600 mg PO Q8H PRN #15 tablet PRN Reason: Pain Referrals: PRIMARY CAREMD [Primary Care Provider] - 2-3 Days HITESH EDWADRS MD [Staff Physician] - 2-3 Days LIO GRACIA II, MD [Staff Physician] - 2-3 Days Time of Disposition: 20:04
[2020-05-25] MEDS ORDERED: KETOROLAC 30 MG/1 ML INJ IV ONE (17:39)
[2020-05-25 17:42] LABS: Bacteria,Urine 1+ /HPF (Negative); Bilirubin,Urine NEG (Negative); Blood,Urine NEG (Negative); Color,Urine Yellow (Yellow); Mucus,Urine FEW /HPF; Protein,Urine <15 mg/dL mg/dL (Negative); Urobilinogen,Urine < 2.0 mg/dL (<2.0)
--- NOTE | 2020-05-25 18:32 | XRay Report ---
LUMBAR SPINE 3 VIEWS INDICATION / CLINICAL INFORMATION: back pain. COMPARISON: None available. FINDINGS: VERTEBRAE: No acute fracture. No significant malalignment. DISC SPACES / FACET JOINTS:Multilevel degenerative changes are noted most prominent at L5-S1. Facet a rthropathy is noted at L4-L5 and L5-S1 with moderate bilateral neural foraminal stenosis.. PARASPINAL SOFT TISSUES:Vascular calcific locations. Partially visualized total right hip arthroplast y. ADDITIONAL FINDINGS: None. Signer Name: Thaddeus Kan MD Signed: 05/25/2020 6:27 PM Workstation Name: [id number]
[2020-05-25] MEDS ORDERED: KETOROLAC 30 MG/1 ML INJ IM ONE (18:33)
--- NOTE | 2020-05-25 18:33 | XRay Report ---
THORACIC SPINE 3 VIEWS INDICATION / CLINICAL INFORMATION: MAIN. COMPARISON: None available. FINDINGS: VERTEBRAE: No acute fracture. No significant malalignment. Generalized osteopenia. DISC SPACES / FACET JOINTS:Multilevel mild degenerative changes are noted. PARASPINAL SOFT TISSUES:No significant abnormality. ADDITIONAL FINDINGS: Partially visualized triple lead left chest wall cardiac device. Signer Name: Thaddeus Kan MD Signed: 05/25/2020 6:29 PM Workstation Name: [id number]
[2020-05-25 19:25] VITALS: BP 115/74
== END 2020-05-25 20:40 | disposition home or self-care (01) ==
LOC: ED 10:16
DX: R33.9 Retention of urine, unspecified (principal); M54.40 Lumbago with sciatica, unspecified side; I25.2 Old myocardial infarction; Z98.890 Other specified postprocedural states; Z79.1 Long term (current) use of non-steroidal anti-inflammatories (NSAID); Z79.899 Other long term (current) drug therapy
CPT/HCPCS: 36415; 51702; 71045; 72072; 72100; 80053; 81001; 85025; 93005; 96372; 99283; J1885